=== PATIENT | female | born 1965 | race Two or more races ===

== ENCOUNTER → 2021-12-04 | Outpatient (CLI) | payer OTHER | LOC: M PLAIMG 14:10 | PROVIDERS: ATTEND Physician Assistant | DX: S82.042A Displaced comminuted fracture of left patella, initial encounter for closed fracture (principal) ==

== ENCOUNTER → 2022-07-16 | Outpatient (CLI) | payer OTHER | LOC: M SOG 08:33 | PROVIDERS: ATTEND Orthopaedic Surgery | DX: Z47.89 Encounter for other orthopedic aftercare (principal); M25.562 Pain in left knee ==